=== PATIENT | female | born 1990 ===

== ENCOUNTER 2021-07-22 23:13 | Inpatient (IN) ==
[2021-07-23] MEDS ORDERED: Penicillin G Potassium IV 5,000,000 UNITS in NS 0.9% 100 ml BAG 100 ML IVPB ONE (00:05)
[2021-07-23] MEDS ORDERED: Buffered Lidocaine 1% SYRIN 1 ml INTRADERM ONE (00:05)
[2021-07-23] MEDS ORDERED: Lactated Ringers 1000 ml BAG 1,000 ML IV ONE ×2 (00:10→00:46)
[2021-07-23] MEDS ORDERED: OBEPIDURAL 250 ML EPIDURAL ONE (00:25)
[2021-07-23 00:30] LABS: ABS Basophils 0.1 10^3/ul (0-0.2); ABS Eosinophils 0.6 10^3/ul (0-0.6); ABS Lymphocytes 2.4 10^3/ul (1.0-4.8); ABS Monocytes 0.6 10^3/ul (0-0.8); Eosinophil % 5.9 %; Hematocrit 37 % (35-47); Hemoglobin 12.1 g/dL (12.0-16.0); Lymphocyte % 22.4 %; Mean Corpuscular HGB Conc 33 g/dL (31-36); Mean Corpuscular Hemoglobin 27 pg (27-31); Mean Corpuscular Volume 83 fL (80-97); Mean Platelet Volume 8.8 fL (7.4-10.4); Nucleated Red Blood Cells % 0.1; Platelet Count 218 10^3/uL (150-450); Red Blood Count 4.46 10^6 /uL (3.70-4.87); Red Cell Distribution Width 14 % (10-15); White Blood Count 10.8 10^3/uL (3.5-10.8)
[2021-07-23] MEDS ORDERED: Sodium Citrate/Citric Acid LIQ 15 ML UDC PO PRN (00:46)
[2021-07-23] MEDS ORDERED: Phenylephrine 40 mcg/mL 10mL (400mcg) SYRINGE IV PUSH PRN ×2 (00:46)
[2021-07-23] MEDS ORDERED: Oxytocin in LR 20 UNITS/1,000 ML BAG IVPB ONE (00:47)
[2021-07-23] MEDS ORDERED: OBEPIDURAL 250 ML EPIDURAL SCH (01:00)
[2021-07-23] MEDS ORDERED: Lactated Ringers 1000 ml BAG 1,000 ML IV SCH ×3 (01:00→09:00)
[2021-07-23] MEDS ORDERED: Lidocaine 1% VIAL 10 MG/ML VIAL ONE (01:29)
[2021-07-23 02:28] LABS: Urine Benzodiazepine Screen None Detected (None Detect); Urine Cannabinoids Screen None Detected (None Detect); Urine Opiates Screen None Detected (None Detect)
[2021-07-23] MEDS ORDERED: Dibucaine 1% OINT 28.35 GM TUBE ONE (02:58)
[2021-07-23] MEDS ORDERED: Witch Hazel PAD JAR ONE (02:58)
[2021-07-23] MEDS ORDERED: Witch Hazel PAD JAR TOPICAL PRN (08:41)
[2021-07-23] MEDS ORDERED: Glycerin ADULT 2.4 gm SUPP PR PRN (08:41)
[2021-07-23] MEDS ORDERED: Dibucaine 1% OINT 28.35 GM TUBE PR PRN (08:41)
[2021-07-23] MEDS ORDERED: Oxytocin in LR 20 UNITS/1,000 ML BAG IVPB SCH (09:00)
[2021-07-24 07:28] LABS: ABS Basophils 0.1 10^3/ul (0-0.2); ABS Eosinophils 0.4 10^3/ul (0-0.6); ABS Lymphocytes 2.5 10^3/ul (1.0-4.8); ABS Monocytes 0.5 10^3/ul (0-0.8); ABS Neutrophils 4.7 10^3/ul (1.5-7.7); Eosinophil % 5.1 %; Hematocrit 35 % (35-47); Hemoglobin 11.5 g/dL (12.0-16.0); Lymphocyte % 30.9 %; Mean Corpuscular HGB Conc 33 g/dL (31-36); Mean Corpuscular Hemoglobin 28 pg (27-31); Mean Corpuscular Volume 85 fL (80-97); Mean Platelet Volume 8.1 fL (7.4-10.4); Platelet Count 166 10^3/uL (150-450); Red Blood Count 4.11 10^6 /uL (3.70-4.87); Red Cell Distribution Width 15 % (10-15); White Blood Count 8.2 10^3/uL (3.5-10.8)
[2021-07-25 08:25] VITALS: BP 112/76
== END 2021-07-25 19:30 | disposition home or self-care (01) | DRG 560 ==
LOC: MCHOBOUT 23:13 → MCHOB 07-23 00:04
PROVIDERS: ADMIT Midwife; ATTEND Midwife